=== PATIENT | female | born 1940 | race Caucasian/White ===

== ENCOUNTER 2018-04-08 19:07 | Emergency (ER) | payer OTHER, MEDICARE ==
[~2018-04-08] VITALS: Ht 160 cm; Wt 67.1 kg
[2018-04-08 19:09] VITALS: BP_SYST 146
[2018-04-08] MEDS ORDERED: HYDR200T80 PO (19:52)
[2018-04-08] MEDS ORDERED: ALBU8.5H8 INH (19:52)
[2018-04-08] MEDS ORDERED: ATOR40TA68 PO (19:52)
[2018-04-08] MEDS ORDERED: ESCI10TA PO (19:52)
[2018-04-08] MEDS ORDERED: VITD400 PO (19:52)
[2018-04-08] MEDS ORDERED: FLUT1AER INH (19:52)
[2018-04-08] MEDS ORDERED: MULT-1117 PO (19:52)
[2018-04-08] MEDS ORDERED: FOLI-43 PO (19:52)
[2018-04-08] MEDS ORDERED: UBID100C30 PO (19:52)
[2018-04-08] MEDS ORDERED: BIOT5TAB PO (19:52)
[2018-04-08] MEDS ORDERED: METO25TA3 PO (19:52)
[2018-04-08] MEDS ORDERED: MONT10TA25 PO (19:52)
[2018-04-08] MEDS ORDERED: ASPI-1154 PO (19:52)
[2018-04-08] MEDS ORDERED: METH500T PO (19:52)
[2018-04-08] MEDS ORDERED: HYAL1CAP PO (19:52)
[2018-04-08] MEDS ORDERED: KETOROLAC TROMETHAMINE 30 MG VIAL IVP ONE (20:00)
[2018-04-08] MEDS ORDERED: DEXAMETHASONE SOD PHOSPHATE 10 MG/ML VIAL IVP ONE (20:15)
[2018-04-08 21:28] VITALS: BP_SYST 120
== END 2018-04-08 21:28 | disposition home or self-care (01) ==
LOC: SED 19:07
DX: S83.241A Other tear of medial meniscus, current injury, right knee, initial encounter (principal); G89.29 Other chronic pain; M25.551 Pain in right hip; R03.0 Elevated blood-pressure reading, without diagnosis of hypertension; M19.90 Unspecified osteoarthritis, unspecified site; Z79.899 Other long term (current) drug therapy; X58.XXXA Exposure to other specified factors, initial encounter; Y93.89 Activity, other specified; Y92.89 Other specified places as the place of occurrence of the external cause; Y99.8 Other external cause status
CPT/HCPCS: 73502; 73564; 96374; 96375; 99283; J1100; J1885

== ENCOUNTER 2020-03-01 19:06 | Emergency (ER) | payer OTHER, MEDICARE, SELFPAY ==
[~2020-03-01] VITALS: Ht 167.6 cm; Wt 65.8 kg
[~2020-03-01 19:06] MED LIST: ALBU8.5H8 INH; ASPI-1457 PO; ATOR40TA68 PO; BIOT5TAB PO; ESCI10TA PO; FLUT1AER INH; FOLI-43 PO; HYAL1CAP PO; HYDR200T80 PO; METH500T PO; METO25TA3 PO; MONT10TA27 PO; MULT-1117 PO; UBID100C45 PO; VITD400 PO
[2020-03-01 19:56] VITALS: BP_SYST 165
[2020-03-01 22:32] LABS: ANION GAP 10 (5-15); CALCIUM 9.1 mg/dL (8.4-11.0); CHLORIDE 105 mmol/L (98-107); CREATININE 0.81 mg/dL (0.55-1.30); GLUCOSE 111 mg/dL (70-99); POTASSIUM 4.3 mmol/L (3.5-5.1); SODIUM SERUM 141 mmol/L (136-145); UREA NITROGEN, BLOOD 9 mg/dL (8-21)
[2020-03-01 22:41] LABS: ALANINE AMINOTRANSFERASE 205 U/L (12-78); ALBUMIN 3.3 g/dL (3.4-4.8); ASPARTATE AMINOTRANSFERASE 150 U/L (10-37); TOTAL BILIRUBIN 0.8 mg/dL (0.0-1.0)
[2020-03-02 00:26] LABS: HEMOGLOBIN 12.8 g/dL (12.0-16.0); MEAN CORPUSCULAR HEMOGLOBIN 33 pg (27-31); PLATELET COUNT (AUTO) 308 K/uL (130-430)
[2020-03-02 00:32] LABS: BASOPHILS # (AUTO) 0.1 K/uL (0.0-0.2); BASOPHILS % (AUTO) 0.6 % (0.0-2.0); EOSINOPHILS # (AUTO) 0.2 K/uL (0.0-0.4); EOSINOPHILS % (AUTO) 2.2 % (0.0-4.0); LYMPHOCYTES # (AUTO) 1.3 K/uL (1.0-5.5); LYMPHOCYTES % (AUTO) 16.7 % (20.5-51.5); MEAN CORPUSCULAR HGB CONC 34 % (32-36); MEAN CORPUSCULAR VOLUME 98 fL (79.0-98.0); MONOCYTES % (AUTO) 12.6 % (1.7-9.3); NEUTROPHILS # (AUTO) 5.4 K/uL (1.8-7.7); NEUTROPHILS % (AUTO) 67.9 % (40.0-70.0); RED BLOOD CELL COUNT(AUTO) 3.86 MIL/uL (4.2-6.2); RED CELL DISTRIBUTION WIDTH 12.2 % (9.0-15.0)
[2020-03-02 02:30] VITALS: BP_SYST 145
[2020-03-02] MEDS ORDERED: DECADRON 4 MG TABLET PO ONE (02:30)
== END 2020-03-02 03:12 | disposition home or self-care (01) ==
LOC: SED 19:06
DX: U07.1 COVID-19 (principal); R06.00 Dyspnea, unspecified; Z79.899 Other long term (current) drug therapy
CPT/HCPCS: 36415; 71045; 80053; 84484; 85025; 87426; 93005; 99285; J8540